=== PATIENT | male | born 1975 | race Caucasian/White ===

== ENCOUNTER → 2018-10-14 | Outpatient (CLI) | payer BC ==
--- NOTE | 2018-10-15 09:35 | US ---
EXAMINATION TYPE: US liver DATE OF EXAM: 10/14/2018 COMPARISON: NONE CLINICAL HISTORY: 43-year-old male R74.8 abnormal levels of other serum enzymes. TECHNIQUE: Multiple sonographic images of the right upper quadrant are obtained. FINDINGS: EXAM MEASUREMENTS: Liver Length: 21.2 cm Gallbladder Wall: 0.2 cm CBD: 0.3 cm Right Kidney: 12.1 x 4.8 x 4.7 cm [employer] notes:Patient of large body habitus with extensive midline bowel gas., technically diffic ult study. Pancreas: Obscured by bowel gas Liver: Increased attenuation, decreased visualization of vessels suggestive of fatty infiltrate, hep atomegaly Gallbladder: wnl Evidence for sonographic Bustillo's sign: no CBD: wnl Right Kidney: No hydronephrosis IMPRESSION: Hepatomegaly (21 cm) with moderate to severe hepatic steatosis. Correlate with LFTs, lipid profile, a nd patient risk factors.
== END ==
LOC: RADUSWWP 16:18
PROVIDERS: ATTEND Family Medicine
DX: K76.0 Fatty (change of) liver, not elsewhere classified (principal); R16.0 Hepatomegaly, not elsewhere classified
CPT/HCPCS: 76705

== ENCOUNTER → 2020-02-16 | Outpatient (CLI) | payer BC ==
--- NOTE | 2020-02-16 14:50 | XR ---
EXAMINATION TYPE: XR foot complete RT DATE OF EXAM: 02/16/2020 COMPARISON: NONE HISTORY: Pain TECHNIQUE: Three views are submitted. FINDINGS: The osseous structures are intact. There is no acute fracture or dislocation. Large spur at the Ac hilles insertion of the calcaneus. Arthropathy of the first MTP joint. IMPRESSION: 1. Large spur of the Achilles insertion of the calcaneus. 2. MTP first digit severe arthropathy.
[2020-02-16 15:16] LABS: Basophils # (A) 0.1 k/uL (0-0.2); Basophils % (A) 1 %; Eosinophils # (A) 0.3 k/uL (0-0.7); Eosinophils % (A) 3 %; HCT 44.3 % (39.0-53.0); HGB 14.6 gm/dL (13.0-17.5); Lymphocytes # (A) 2.9 k/uL (1.0-4.8); Lymphocytes % (A) 29 %; MCH 28.7 pg (25.0-35.0); Mean Platelet Volume 7.8; Monocytes # (A) 0.5 k/uL (0-1.0); Monocytes % (A) 5 %; Neutrophils # (A) 5.7 k/uL (1.3-7.7); Neutrophils % (A) 59 %; Platelet Count 348 k/uL (150-450); RBC 5.09 m/uL (4.30-5.90); RDW 12.9 % (11.5-15.5); WBC 9.8 k/uL (3.8-10.6)
[2020-02-16 15:28] LABS: ALT 60 U/L (4-49); AST 39 U/L (17-59); African American GFR (CKD) >90 (>60 ml/min/1.73 sqM); Albumin 4.4 g/dL (3.5-5.0); Alkaline Phosphatase 52 U/L (38-126); Anion Gap 8 mmol/L; Blood Urea Nitrogen 12 mg/dL (9-20); Calcium 9.6 mg/dL (8.4-10.2); Carbon Dioxide 25 mmol/L (22-30); Chloride 106 mmol/L (98-107); Glucose 100 mg/dL (74-99); Non-African American GFR(CKD) >90 (>60 ml/min/1.73 sqM); Potassium 4.3 mmol/L (3.5-5.1); Sodium 139 mmol/L (137-145); Total Bilirubin 0.5 mg/dL (0.2-1.3); Total Protein 7.4 g/dL (6.3-8.2)
[2020-02-16 15:45] LABS: Cholesterol 290 mg/dL (<200); HDL Cholesterol 36 mg/dL (40-60); LDL Cholesterol,Calculated 197 mg/dL (0-99); Triglycerides 284 mg/dL (<150)
--- NOTE | 2020-02-16 18:00 | ECHOF ---
Referral Reason:R60.0 Esteban lower ext edema, M76.60 MEASUREMENTS -------- HEIGHT: 165.1 cm WEIGHT: 128.8 kg BP: RVIDd: 3.2 cm (< 3.3) IVSd: 1.4 cm (0.6 - 1.1) LVIDd: 4.3 cm (3.9 - 5.3) LVPWd: 1.4 cm (0.6 - 1.1) EDV(Teich): 84 ml IVSs: 1.6 cm LVIDs: 2.8 cm LVPWs: 2.0 cm %IVS Thck: 20 % ESV(Teich): 30 ml EF(Teich): 65 % %FS: 35 % SV(Teich): 54 ml LALs A4C: 6.4 cm LAAs A4C: 23.4 cm LAESV A-L A4C: 72 ml LAESV MOD A4C: 66 ml LALs A2C: 6.1 cm LAAs A2C: 18.7 cm LAESV A-L A2C: 49 ml LAESV MOD A2C: 46 ml LAESV(A-L): 61 ml LAESV Index (A-L): 26.60 ml/m Ao Diam: 2.7 cm (2.0 - 3.7) AV Cusp: 2.2 cm (1.5 - 2.6) MV EXCURSION: 19.783 mm (> 18.000) MV EF SLOPE: 132 mm/s (70 - 150) EPSS: 0.8 cm LVOT Vmax: 0.65 m/s LVOT maxP.69 mmHg AV Vmax: 0.82 m/s AV maxP.68 mmHg TR Vmax: 1.51 m/s TR maxP.10 mmHg RAP: 5.00 mmHg RVSP: 14.10 mmHg FINDINGS -------- Sinus rhythm. This was a technically difficult study with suboptimal views. The left ventricular size is normal. There is moderate concentric left ventricular hypertrophy. O verall left ventricular systolic function is low-normal with, an EF between 50 - 55 %. The right ventricle is normal in size. Normal LA size by volume 22+/-6 ml/m2. The right atrium was not well visualized. 5.0mg of Lumason was utilized for enhancement of images Interatrial and interventricular septum intact. The aortic valve was not well visualized. There is no evidence of aortic regurgitation. There is no evidence of aortic stenosis. No mitral regurgitation. Mild tricuspid regurgitation present. There is no evidence of pulmonary hypertension. The right v entricular systolic pressure, as measured by Doppler, is 14.10mmHg. There is no pulmonic regurgitation present. The aortic root size is normal. IVC Not well visulized. There is no pericardial effusion. CONCLUSIONS -------- 1. The left ventricular size is normal. 2. There is moderate concentric left ventricular hypertrophy. 3. Overall left ventricular systolic function is low-normal with, an EF between 50 - 55 %. 4. Mild tricuspid regurgitation present. CLIN NURSE SPEC: Nisha Linton RDCS
== END | disposition home or self-care (01) ==
LOC: RADECHMAIN 14:00
PROVIDERS: ATTEND Family Medicine
DX: M12.871 Other specific arthropathies, not elsewhere classified, right ankle and foot (principal); M77.31 Calcaneal spur, right foot; I07.1 Rheumatic tricuspid insufficiency; M76.60 Achilles tendinitis, unspecified leg; R60.0 Localized edema
CPT/HCPCS: 93306; 80061; 80053; 85025; 73630; Q9950

== ENCOUNTER → 2023-04-02 | Outpatient (CLI) | payer BC ==
[2023-04-02 21:03] LABS: ALT 35 U/L (10-49); AST 24 U/L (14-35); Blood Urea Nitrogen 13.2 mg/dL (9.0-27.0); Uric Acid 7.6 mg/dL (3.7-8.7)
== END | disposition home or self-care (01) ==
LOC: LABWHC1 13:52
PROVIDERS: ATTEND Podiatrist
DX: M10.9 Gout, unspecified (principal)
CPT/HCPCS: 36415; 82565; 84450; 84460; 84520; 84550

== ENCOUNTER → 2023-04-30 | Outpatient (CLI) | payer BC | END | disposition home or self-care (01) | LOC: LABWHC1 09:33 | PROVIDERS: ATTEND Podiatrist | DX: Z53.9 Procedure and treatment not carried out, unspecified reason (principal) ==

== ENCOUNTER → 2023-04-30 | Outpatient (CLI) | payer BC ==
--- NOTE | 2023-04-30 11:41 | CT ---
EXAMINATION TYPE: CT sinus wo con, CT mastoid wo con DATE OF EXAM: 04/30/2023 COMPARISON: Brain 06/19/2016 HISTORY: 48 year-old male H80.00, otosclerosis f/u TECHNIQUE: Contiguous axial scanning of the paranasal sinuses followed by the temporal bones without IV contrast. Coronal and sagittal reconstructions performed. CT DLP: 877 mGycm Automated exposure control for dose reduction was used. FINDINGS: PARANASAL SINUSES: Visualized intracranial structures show no gross abnormality. There is complete opacification of the left maxillary sinus with contiguous opacity medially bulging the medial wall of the left maxillary sinus to fill the middle turbinate and even abut the nasal sept um. Slight rightward nasal septal deviation. Moderate lobulated mucosal thickening floor of the right maxillary sinus. No reactive shyla-osteogenesis or calcification seen in the paranasal sinuses. Moderate to severe mucosal thickening anterior ethmoid air cells on the left and complete opacificati on left frontal sinus. Additional scattered mild mucosal thickening sphenoid sinuses. MASTOIDS: There is scattered fluid within the bilateral mastoid air cells, right greater than left. No abnormal opacification seen within the middle ear cavities. No erosion identified. No evidence of semicircular canal dehiscence is seen. There appears to be a stapes prosthesis on the right unable to exclude slight vestibular perforation by the medial tip of the prosthesis, refer to axial image 25 and coronal image 104. Cochlear and vestibular aqueducts appear satisfactory. The external auditory canals are patent. Bilateral facial nerve canals appear normal. IMPRESSION: PARANASAL SINUSES: 1. OPACIFICATION OF THE LEFT MAXILLARY SINUS WITH CONTIGUOUS MEDIAL BULGING OF ONTO THE MEDIAL SINUS WALL AND INTO THE LEFT NASAL CAVITY. OPACIFICATION EXTENDS TO ABUT THE NASAL SEPTUM. RECOMMEND FURTHE R ENT EVALUATION FOR UNDERLYING SINONASAL POLYPOSIS, MUCOCELE, OR NEOPLASM. 2. SECONDARY OBSTRUCTION OF THE LEFT OSTEOMEATAL COMPLEXES. THERE IS ACCOMPANYING OPACIFICATION OF AN TERIOR LEFT ETHMOID AIR CELLS AND LEFT FRONTAL SINUS. MASTOIDS: 3. There appears to be a right stapes prosthesis. The medial tip is slightly displaced and may be jus t entering the vestibule. Unable to exclude complication with vestibular perforation. Correlate for a ny conductive hearing loss. Refer to axial image 25 and coronal image 104. 4. There is scattered fluid within the bilateral mastoid air cells. Correlate for any mastoid pain to exclude mastoiditis.
[2023-04-30 16:07] LABS: ALT 56 U/L (10-49); AST 33 U/L (14-35); Blood Urea Nitrogen 13.5 mg/dL (9.0-27.0); Uric Acid 6.1 mg/dL (3.7-8.7)
== END | disposition home or self-care (01) ==
LOC: RADCTMAIN 08:49
PROVIDERS: ATTEND Otolaryngology
DX: H80 Otosclerosis (principal); J32.9 Chronic sinusitis, unspecified; J34.89 Other specified disorders of nose and nasal sinuses
CPT/HCPCS: 70486; 82565; 84450; 84460; 84520; 84550